=== PATIENT | female | born 1985 ===

== ENCOUNTER 2017-09-19 08:58 | Emergency (ER) | payer OTHER ==
[2017-09-19 09:03] VITALS: BMI 18.6
--- NOTE | 2017-09-19 10:37 | ED PDOC ---
HPI: Abdomen Time Seen by Provider: 09/19/17 10:00 Chief Complaint (Nursing): Abdominal Pain Chief Complaint (Provider): Abdominal Pain History Per: Patient History/Exam Limitations: no limitations Onset/Duration Of Symptoms: Hrs (x 3) Current Symptoms Are (Timing): Still Present Additional Complaint(s): 32 year old female () presents tot the ED complaining of abdominal cramping , onset this morning. She describes the pain as cramping and says that it comes in intermittent episodes of 3-4 minutes. Pain radiates to her back. LNMP August 23. Denies any urinary problems, fever or vomiting. PMD: none Past Medical History Reviewed: Historical Data, Nursing Documentation, Vital Signs Vital Signs: Last Vital Signs Temp 98.6 F 09/19/17 11:59 Pulse 72 09/19/17 11:59 Resp 18 09/19/17 11:59 BP 105/58 L 09/19/17 11:59 Pulse Ox 97 09/19/17 11:59 - Medical History PMH: Gastritis - Surgical History Surgical History: (2) - Family History Family History: States: Unknown Family Hx - Home Medications Home Medications: Ambulatory Orders Medication Instructions Recorded No Known Home Med 09/19/17 - Allergies Allergies/Adverse Reactions: Allergies Allergy/AdvReac Type Severity Reaction Status Date / Time No Known Allergies Allergy Verified 09/19/17 09:10 Review of Systems ROS Statement: Except As Marked, All Systems Reviewed And Found Negative Constitutional: Negative for: Fever Gastrointestinal: Positive for: Abdominal Pain (cramping). Negative for: Vomiting Genitourinary Female: Negative for: Dysuria, Frequency Physical Exam - Reviewed Nursing Documentation Reviewed: Yes Vital Signs Reviewed: Yes - Physical Exam Appears: Positive for: Non-toxic, No Acute Distress Head Exam: Positive for: ATRAUMATIC, NORMOCEPHALIC Skin: Positive for: Normal Color, Warm, Dry Eye Exam: Positive for: Normal appearance, PERRL Neck: Positive for: Normal, Painless ROM, Supple Cardiovascular/Chest: Positive for: Regular Rate, Rhythm. Negative for: Murmur Respiratory: Positive for: Normal Breath Sounds. Negative for: Wheezing Gastrointestinal/Abdominal: Positive for: Normal Exam, Soft Pelvic Exam: Positive for: External Exam Normal, Speculum Exam Normal, Bimanual Exam Normal Back: Positive for: Normal Inspection Extremity: Positive for: Normal ROM - Laboratory Results Result Diagrams: 09/19/17 10:40 09/19/17 10:40 - ECG O2 Sat by Pulse Oximetry: 100 (RA) Pulse Ox Interpretation: Normal Medical Decision Making Medical Decision Making: Time: 10:03 Initial Plan: Lower abdominal pain r/o UTI, r/o Ovarian torsion; no suspicion for appendicitis. --CMP --Urine preg --urine dipstick --Chlamydia --Motrin 600 mg PO --Transvag US TV SONO Creator : Fareed Belle MD IMPRESSION: No evidence of adnexal torsion. Trace fluid in the cul-de-sac Complex mass perhaps hemorrhagic cyst right ovary. WBC normal. No McBurney's point. No fever. Not clinically appendicitis. 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 Normal pelvic exam. UA negative for UTI. Negative . US reviewed. Results reviewed with patient and in tamazight. Abdomen on reevaluation was normal. NT ND BSx4. Patient is tolerating PO fluids. Will discharge home with ovarian cyst and abdominal pain instructions and advised to return to the ED with any worsening symptoms or concerns. Scribe Attestation: Documented by Ariadna Burr, acting as a scribe for Ezequiel Wang DO Provider Scribe Attestation: All medical record entries made by the Scribe were at my direction and personally dictated by me. I have reviewed the chart and agree that the record accurately reflects my personal performance of the history, physical exam, medical decision making, and the department course for this patient. I have also personally directed, reviewed, and agree with the discharge instructions and disposition. Disposition - Clinical Impression Clinical Impression: Abdominal cramps - Patient ED Disposition Is Patient to be Admitted: No - Disposition Referrals: [facility] [Outside] Sukhjinder Plummer MD [Staff Provider] - Disposition: Routine/Home Disposition Time: 12:00 Condition: IMPROVED Additional Instructions: Ms Fung, thank you for letting us take care of you today. Your provider was Dr. Wang. You were treated for Abdominal Pain. The emergency medical care you received today was directed at your acute symptoms. If you were prescribed any medication, please fill it and take as directed. It may take several days for your symptoms to resolve. Return to the Emergency Department if your symptoms worsen, do not improve, or if you have any other problems. Please contact your doctor or call one of the physicians/clinics you have been referred to that are listed on the Patient Visit Information form that is included in your discharge packet. Bring any paperwork you were given at discharge with you along with any medications you are taking to your follow up visit. Our treatment cannot replace ongoing medical care by a primary care provider (PCP) outside of the emergency department. Thank you for allowing the [facility] team to be part of your care today. If you had an X-Ray or CT scan: A Radiologist will review the ED reading if any change in treatment is needed we will contact you. If you had a blood, urine, or wound culture: It will take several days for the results, if any change in treatment is needed we will contact you. If you had an STI test: It will take 48 hours for the results. Please call after 1 week if you have not heard back. Instructions: Ovarian Cyst (ED), Abdominal Pain (ED) Forms: [employer] (Indonesian), [facility] School/Work Excuse Print Language: ITALIAN
[2017-09-19 10:44] LABS: BASO % 0.5 % (0.0-2.0); EOS % 0.5 % (0.0-4.0); HEMOGLOBIN 13.1 g/dL (12.0-16.0); LYMPH # 1.4 K/uL (1.0-4.3); LYMPH % 20.2 % (20.0-40.0); MEAN CELL VOLUME 86.2 fl (81.0-99.0); MEAN CORPUSCULAR HEMOGLOBIN 28.5 pg (27.0-31.0); MONO # 0.3 K/uL (0.0-0.8); MONO % 4.3 % (0.0-10.0); NEUT % 74.5 % (50.0-75.0); NRBC % 0.1 % (0.0-0.0); RBC 4.61 Mil/uL (3.80-5.20); RED CELL DISTRIBUTION WIDTH 13.4 % (11.5-14.5); WHITE BLOOD COUNT 6.7 K/uL (4.8-10.8)
[2017-09-19 11:01] LABS: ALB/GLOB RATIO 1.2 (1.0-2.1); ALBUMIN 4.5 g/dL (3.5-5.0); CALCIUM 9.4 mg/dL (8.4-10.2); GFR AFRICAN-AMERICAN > 60; GFR NON-AFRICAN AMERICAN > 60
[2017-09-19 11:02] LABS: ALT/SGPT 36 U/L (9-52); AST/SGOT 36 U/L (14-36); BLOOD UREA NITROGEN 16 mg/dl (7-17)
[2017-09-19 11:59] VITALS: BP 105/58; PULSE 72; RESP 18; TEMP 98.6
--- NOTE | 2017-09-19 12:41 | US ---
HISTORY: Lower abdominal pain, torsion suspected Menstrual status: LMP 07/24/2017 menstrual cycles are irregular. COMPARISON: 04/20/2016 TECHNIQUE: Transvaginal only. Real -time technique with 2D, duplex and color Doppler FINDINGS: UTERUS: Measures 6.9 x 3.7 x 8.2 cm. Normal in size and appearance. No fibroid or other mass lesion seen. ENDOMETRIUM: Measures 11.6 mm in diameter. No ultrasound findings to suggest gestational sac, fluid, debris, mass or polyp or other pathologic process within the endometrium. CERVIX: No cervical abnormality identified. RIGHT OVARY: Measures 3.4 x 3.2 x 2.5 cm. Mass, perhaps hemorrhagic cyst identified 1.5 x 1.9 cm Normal flow. LEFT OVARY: Measures 2.6 x 1.2 x 2.9 cm. No solid mass. Normal flow. FREE FLUID: Low volume free fluid identified in the cul-de-sac. OTHER FINDINGS: None. IMPRESSION: No evidence of adnexal torsion. Trace fluid in the cul-de-sac. Complex mass perhaps hemorrhagic cyst right ovary.
[2017-09-19 16:20] VITALS: O2SAT 100
== END 2017-09-19 12:06 | disposition home or self-care (01) ==
LOC: H.ER 08:58
DX: O34.80 Maternal care for other abnormalities of pelvic organs, unspecified trimester (principal); N83.209 Unspecified ovarian cyst, unspecified side